=== PATIENT | female | born 1945 | race African-American/Black ===

== ENCOUNTER 2019-05-02 02:49 | Emergency (ER) | payer MEDICARE, MEDICAID ==
[~2019-05-02] VITALS: Ht 167.6 cm; Wt 77.6 kg
--- NOTE | 2019-05-02 02:50 | NUR ---
PT CAME IN FOR BLE PAIN. PT AAOX4, VSS, NO ACUTE DISTRESS NOTED. AWAITING FOR MD BASSETT
--- NOTE | 2019-05-02 03:15 | NUR ---
URINE COLLECTED AND SENT TO LAB
[2019-05-02 04:00] LABS: APPEARANCE,URINE Clear (CLEAR); BILIRUBIN,URINE Negative (NEGATIVE); BLOOD, URINE Negative Ery/uL (NEGATIVE); COLOR,URINE Yellow (YELLOW); KETONES,URINE Negative (NEGATIVE); LEUKOCYTE ESTERASE ,URINE Negative (NEGATIVE); NITRITE, URINE Negative (NEGATIVE); PH,URINE 5.5 (5.0-8.0); PROTEIN,URINE Negative (NEGATIVE); UGLUCOSE Negative (NEGATIVE); UROBILINOGEN,URINE 0.2 EU/dL (0.2)
[2019-05-02 05:28] LABS: BASOPHILS % (AUTO) 0.7 % (0.0-2.0); HEMATOCRIT 33 % (33-45); HEMOGLOBIN 10.8 g/dL (11.5-14.8); LYMPHOCYTES # (AUTO) 0.4 /CMM (0.8-4.8); LYMPHOCYTES % (AUTO) 7.8 % (20.0-44.0); MEAN CORPUSCULAR HGB CONC 33 g/dl (31.0-36.0); MEAN CORPUSCULAR VOLUME 87 fL (82-100); MONOCYTES # (AUTO) 0.3 /CMM (0.1-1.30); MONOCYTES % (AUTO) 6.8 % (2.0-12.0); NEUTROPHILS % (AUTO) 82.7 % (43.0-81.0); PLATELET COUNT (AUTO) 241 /CMM (150-450); RED BLOOD CELL COUNT(AUTO) 3.81 MIL/uL (4.0-5.2); WHITE BLOOD COUNT (AUTO) 4.8 K/uL (4.3-11.0)
[2019-05-02 05:36] LABS: CALCIUM, SERUM 9.5 mg/dL (8.5-10.1); CREATININE 0.9 mg/dL (0.6-1.3); POTASSIUM 3.7 mmol/L (3.5-5.1)
[2019-05-02 05:41] LABS: ALBUMIN 3.1 g/dL (3.4-5.0); BILIRUBIN,TOTAL 0.2 mg/dL (0.2-1.0); TOTAL PROTEIN, SERUM 7.6 g/dL (6.4-8.2)
--- NOTE | 2019-05-02 06:00 | NUR ---
WAITING FOR RESIDENTIAL LIFE DIRECTOR
[2019-05-02] MEDS ORDERED: CIPROFLOXACIN HCL 500 MG TABLET ONE (06:26)
[2019-05-02] MEDS ORDERED: METRONIDAZOLE 500 MG TABLET ONE (06:26)
[2019-05-02] MEDS ORDERED: CIPROFLOXACIN HCL 500 MG TABLET PO ONE (06:30)
[2019-05-02] MEDS ORDERED: METRONIDAZOLE 500 MG TABLET PO ONE (06:30)
--- NOTE | 2019-05-02 06:53 | NUR ---
Patient is resting comfortably in bed with eyes closed. Easily aroused. VSS. SITTER AT BEDSIDE
--- NOTE | 2019-05-02 07:30 | NUR ---
ENDORSEMENT RECEIVED FROM MUKESH JERNIGAN FOR STERLING
--- NOTE | 2019-05-02 09:42 | NUR ---
PATIENT IN BED RESTING COMFORTABLY, EASILY AROUSABLE BY VOICE. HOOKED TOMONITOR. KEPT SAFE AND WARM. WILL CONTINUE TO MONITOR ACCORDINGLY.
--- NOTE | 2019-05-02 12:16 | NUR ---
PATIENT DENIES HOMELESSNESS, REFUSED TO SIGN HOMELESS WAIVER FORM. PATIENT STATES SHE LIVES IN [place]. PATIENT JUST REQUESTED FOR TAP CARD. WHEN ASKED WHERE IS SHE GOING TO STAY, PATIENT STATES "IN A [place]EL".
--- NOTE | 2019-05-02 12:57 | NUR ---
PROVIDED PATIENT WITH PANTS AND TAP CARD.
--- NOTE | 2019-05-02 13:06 | NUR ---
Patient given written and verbal discharge instructions. Patient verbalizes understanding of instructions. Patient is ambulatory using cane with steady gait. Assisted out of the Emergency Dept. All belongings returned to patient, Name band removed.
[2019-05-02 13:12] VITALS: BP 127/74
== END 2019-05-02 13:10 | disposition home or self-care (01) ==
LOC: ER 02:50
DX: K57.32 Diverticulitis of large intestine without perforation or abscess without bleeding (principal); G89.29 Other chronic pain; I10 Essential (primary) hypertension; Z88.0 Allergy status to penicillin; Z88.2 Allergy status to sulfonamides; Z88.6 Allergy status to analgesic agent; Z88.8 Allergy status to other drugs, medicaments and biological substances; Z88.5 Allergy status to narcotic agent; Z88.9 Allergy status to unspecified drugs, medicaments and biological substances
CPT/HCPCS: 36415; 72192; 80053; 81001; 85025; 99284; J7030; 81000-TC

== ENCOUNTER 2019-05-03 00:38 | Emergency (ER) | payer MEDICARE, OTHER ==
[~2019-05-03] VITALS: Ht 165.1 cm; Wt 80.7 kg
--- NOTE | 2019-05-03 08:08 | NUR ---
Pt has multiple bags but refused and gets angry when asked about living condition. Was here yesterday for chronic issues and stayed in Waiting Room and checked in for the second time. Provided food and clothes as requested. Medically Cleared for discharge
--- NOTE | 2019-05-03 09:00 | NUR ---
Patient discharged to home in stable condition. Written and verbal after care instructions given. Patient verbalizes understanding of instruction.
[2019-05-03 09:40] VITALS: BP 110/80
== END 2019-05-03 09:40 | disposition home or self-care (01) ==
LOC: ER 00:44
DX: G89.29 Other chronic pain (principal); M79.662 Pain in left lower leg; M79.661 Pain in right lower leg; I10 Essential (primary) hypertension; Z88.0 Allergy status to penicillin; Z88.2 Allergy status to sulfonamides; Z88.6 Allergy status to analgesic agent; Z88.8 Allergy status to other drugs, medicaments and biological substances

== ENCOUNTER 2019-07-26 01:11 | Emergency (ER) | payer MEDICARE, OTHER ==
[~2019-07-26] VITALS: Ht 167.6 cm; Wt 77.6 kg
[2019-07-26 01:11] VITALS: BP 137/70
[2019-07-26] MEDS ORDERED: diphenhydrAMINE HCL 25 MG CAPSULE ONE (01:35)
[2019-07-26] MEDS ORDERED: FAMOTIDINE (20 MG) 20 MG TABLET ONE (01:40)
[2019-07-26] MEDS ORDERED: FAMOTIDINE (20 MG) 20 MG TABLET PO ONE (02:00)
== END 2019-07-26 02:13 | disposition home or self-care (01) ==
LOC: ER 01:14
DX: T78.49XA Other allergy, initial encounter (principal); I10 Essential (primary) hypertension; M79.606 Pain in leg, unspecified; G89.29 Other chronic pain; Z88.0 Allergy status to penicillin; Z88.2 Allergy status to sulfonamides; Z88.6 Allergy status to analgesic agent; Z88.8 Allergy status to other drugs, medicaments and biological substances; Z88.5 Allergy status to narcotic agent; Z86.718 Personal history of other venous thrombosis and embolism
CPT/HCPCS: Q0163